=== PATIENT | female | born 1955 | race Caucasian/White ===

== ENCOUNTER 2022-11-29 10:58 | Outpatient (OUT) | payer MEDICARE, OTHER, SELFPAY ==
--- NOTE | 2022-11-29 | XR_ITS ---
The [address] [address] Patient Name: ANAND JENNINGS MRN: [id number] date: 1955 Sex: F Assigned Patient Location: [facility] Current Patient Location: Accession/Order Number: [id number] Exam Date: 11/29/2022 11:00 Report Date: 11/30/2022 06:49 At the request of: ALICE DOUGLAS Procedure: XR cervical spine 5V EXAMINATION: XR cervical spine 5V HISTORY: m54.2 COMPARISON: No relevant comparison available. FINDINGS: BONES: Loss of normal cervical lordosis. Moderate degenerative spondylosis and facet osteoarthropathy DISC SPACES: Multilevel disc space narrowing with endplate sclerosis PARASPINOUS: Negative. No paraspinous abnormality is seen. OTHER: Negative. XR/XR cervical spine 5V IMPRESSION: Moderate degenerative changes Electronically authenticated by: MINAL AGUILAR Date: 11/30/2022 06:49
== END 2022-11-29 10:59 | disposition home or self-care (01) ==
LOC: RAD 10:58
PROVIDERS: PCP Family Medicine; Visit Provider Family Medicine
DX: M54.2 Cervicalgia (principal); R53.83 Other fatigue
CPT/HCPCS: 72050

== ENCOUNTER 2022-12-01 07:18 | Outpatient (OUT) | payer MEDICARE, OTHER, SELFPAY ==
[2022-12-01 07:42] LABS: Basophils Percent Auto 0.4 % (0.2-2.0); Eosinophils Absolute Auto 0.3 10^3/uL (0.0-0.7); Eosinophils Percent Auto 4.4 % (0.9-7.0); Hematocrit 47.1 % (36.0-48.0); Hemoglobin 15.2 g/dL (12.0-16.0); Immature Granulocytes Abs Auto 0.01 10^3/uL (0.00-0.03); Immature Granulocytes Pct Auto 0.1 % (0.0-0.5); Lymphocytes Absolute Auto 2.9 10^3/uL (1.2-3.8); Lymphocytes Percent Auto 39.4 % (20.5-60.0); Mean Corpuscular HGB Conc 32.3 g/dL (29.9-35.2); Mean Corpuscular Hemoglobin 31.1 pg (26.7-34.0); Mean Corpuscular Volume 96.3 fL (81.0-99.0); Mean Platelet Volume 9.5 fL (9.5-13.5); Monocytes Absolute Auto 0.6 10^3/uL (0.3-0.8); Monocytes Percent Auto 8.3 % (1.7-12.0); Neutrophils Absolute Auto 3.5 10^3/uL (1.4-6.5); Neutrophils Percent Auto 47.4 % (43.0-75.0); Platelet Count 233 10^3/uL (150-450); Red Blood Count 4.89 10^6/uL (4.20-5.40); Red Cell Distribution Width 11.8 % (11.0-15.0); White Blood Count 7.5 10^3/uL (4.0-11.0)
[2022-12-01 08:08] LABS: Anion Gap 10.5; BUN Creatinine Ratio 25.4; Calcium 8.9 mg/dL (8.5-10.1); Carbon Dioxide 32.8 mmol/L (21.0-32.0); Chloride 100 mmol/L (98-107); Estimated GFR (African America >60 (>=60); Estimated GFR (Non-African Ame >60 (>=60); Glucose 164 mg/dL (74-106); Potassium 4.3 mmol/L (3.5-5.1); Sodium 139 mmol/L (136-145); Thyroid Stimulating Hormone 4.001 uIU/mL (0.358-3.740)
== END 2022-12-01 07:19 | disposition home or self-care (01) ==
LOC: LAB 07:20
PROVIDERS: PCP Family Medicine; Visit Provider Family Medicine
DX: R53.83 Other fatigue (principal)
CPT/HCPCS: 36415; 80048; 84443; 85025

== ENCOUNTER 2023-02-10 12:48 | Outpatient (OUT) | payer MEDICARE, OTHER, SELFPAY ==
[2023-02-10 13:57] LABS: Basophils Percent Auto 0.4 % (0.2-2.0); Eosinophils Absolute Auto 0.2 10^3/uL (0.0-0.7); Eosinophils Percent Auto 2.4 % (0.9-7.0); Hematocrit 44.2 % (36.0-48.0); Immature Granulocytes Abs Auto 0.02 10^3/uL (0.00-0.03); Immature Granulocytes Pct Auto 0.2 % (0.0-0.5); Lymphocytes Absolute Auto 2.7 10^3/uL (1.2-3.8); Lymphocytes Percent Auto 33.2 % (20.5-60.0); Mean Corpuscular HGB Conc 31.7 g/dL (29.9-35.2); Mean Corpuscular Hemoglobin 31.4 pg (26.7-34.0); Mean Corpuscular Volume 99.1 fL (81.0-99.0); Monocytes Absolute Auto 0.6 10^3/uL (0.3-0.8); Monocytes Percent Auto 6.9 % (1.7-12.0); Neutrophils Absolute Auto 4.6 10^3/uL (1.4-6.5); Neutrophils Percent Auto 56.9 % (43.0-75.0); Platelet Count 248 10^3/uL (150-450); Red Blood Count 4.46 10^6/uL (4.20-5.40); Red Cell Distribution Width 11.9 % (11.0-15.0)
[2023-02-10 14:32] LABS: Alanine Aminotransferase 29 U/L (14-59); Albumin Globulin Ratio 0.9; Albumin Level 3.6 g/dL (3.4-5.0); Alkaline Phosphatase 97 U/L (46-116); Anion Gap 11.2; Aspartate Amino Transferase 14 U/L (15-37); BUN Creatinine Ratio 15.8; Bilirubin Total 0.4 mg/dL (0.2-1.0); Calcium 9.5 mg/dL (8.5-10.1); Carbon Dioxide 32.7 mmol/L (21.0-32.0); Chloride 100 mmol/L (98-107); Estimated GFR (African America >60 (>=60); Estimated GFR (Non-African Ame >60 (>=60); Globulin 3.8 g/dL; Glucose 244 mg/dL (74-106); Potassium 3.9 mmol/L (3.5-5.1); Sodium 140 mmol/L (136-145); Total Protein 7.4 g/dL (6.4-8.2)
[2023-02-10 14:51] LABS: Free T4 1.06 ng/dL (0.76-1.46)
== END 2023-02-10 12:49 | disposition home or self-care (01) ==
LOC: LAB 12:48
PROVIDERS: PCP Family Medicine; Visit Provider Family Medicine
DX: E03.9 Hypothyroidism, unspecified (principal); R10.12 Left upper quadrant pain
CPT/HCPCS: 36415; 80053; 84439; 85025

== ENCOUNTER 2023-02-11 09:18 | Outpatient (OUT) | payer MEDICARE, OTHER, SELFPAY ==
--- NOTE | 2023-02-11 09:20 | US_ITS ---
The [address] [address] Patient Name: ANAND JENNINGS MRN: [id number] date: 1955 Sex: F Assigned Patient Location: US Current Patient Location: Accession/Order Number: [id number] Exam Date: 02/11/2023 09:21 Report Date: 02/11/2023 10:23 At the request of: ALICE DOUGLAS Procedure: US abdomen complete EXAM: US abdomen complete HISTORY: . substernal discomfort R07.2, abdominal pain R10.12 . COMPARISON: None. TECHNIQUE: Grayscale and color imaging was performed FINDINGS: The pancreas appears normal. The liver is enlarged measuring 21 cm. There is increased echogenicity of liver consistent with fatty infiltration of the liver. Color-flow is noted in the portal and hepatic veins. The abdominal aorta is unremarkable. Right kidney measures 11.7 x 4.9 x 4.7 cm and the left kidney 9.9 x 5.2 x 4.7 cm. No solid renal cortical masses or hydronephrosis is noted. The gallbladder is normal with no stones or sludge identified. Common bile duct measures 7 mm. The spleen measures 9 cm. No masses are noted. No fluid is noted within the abdomen. US/US abdomen complete IMPRESSION: 1. The liver was enlarged measuring 21 cm. There is diffuse increased echogenicity of liver consistent with fatty infiltration of liver. 2. The remainder the abdomen was unremarkable. Electronically authenticated by: MINAL GONZALEZ Date: 02/11/2023 10:23
--- OUTSIDE RECORDS SUMMARY | 2023-02-11 09:20 | XMS_ITS | CCD ---
Author Name Unknown Address [address] [place] [address] [address] [place] [id number] Organization [facility] Care Team Providers Care Entry Level Finance Name Role Phone CECILIA MARTINEZ Admitting Unavailable CECILIA MARTINEZ Attending Unavailable CECILIA MARTINEZ Primary Care Unavailable OLVIN JOSUE Consulting Unavailable CECILIA MARTINEZ Consulting Unavailable Gary Burkett Unavailable Cecilia Martinez Unavailable CECILIA MARTINEZ Referring Unavailable ANABELLE IGNACIO Attending Unavailable CECILIA MARTINEZ Referring Unavailable HUGO MEANS Attending Unavailable CECILIA MARTINEZ Referring Unavailable HUGO MEANS Attending Unavailable CECILIA MARTINEZ Referring Unavailable HUGO MEANS Attending Unavailable Geraldine Gregg Unavailable Allergies Allergy Classification Reported Allergen(s) Allergy Type Date of Onset Reaction(s) Facility (11 sources) Ibuprofen Drug Allergy Unknown [facility] Other (11 sources) Penicillin Drug Allergy Unknown [facility] Other (11 sources) Vaccine product containing Influenza virus antigen (medicinal product) Drug allergy Unknown [facility] Other Medications Current Medications Medication Drug Class(es) Dates Sig (Normalized) Sig (Original) [id number] actuat albuterol 0.09 mg/actuat metered dose inhaler (15 sources) beta2-Adrenergic Agonist take 2 puff(s) by inhalation every four hours as needed Albuterol Sulfate HFA 108 (90 Base) MCG/ACT 2 puff Inhalation every 4 hrs prn for 30 days Active take 2 puff(s) by in halation every four hours as needed Albuterol Sulfate HFA 108 (90 Base) MCG/ACT 2 puff Inhalation every 4 hrs prn for 30 days Active ProAir HFA Activ e azithromycin 250 mg oral tablet (4 sources) Macrolide Antimicrobial Start: 01-29-2023 Azithromycin 250 MG 2 tablet on the first day, then 1 tablet daily for 4 days Orally Once a day for 5 day(s) Jan, Active Start: 04-13-2022 Azithromycin 2 50 MG as directed Orally 2 tabs po today, then 1 tab daily x 4 more days for 5 Mar, Not-Taking brimonidine tartrate 2 mg/ml ophthalmic solution (4 sources) alpha-Adrenergic Agonist take 1 drop(s) into the eye(s) every eight hours Brimonidine Tartrate 0.2 % 1 drop into affected eye Ophthalmic every 8 hrs Active doxycycline hyclate 100 mg oral capsule (3 sources) Tetracycline-class Drug Start: 05-12-19 take 1 capsule by mouth twice daily Doxycycline Hyclate 100 MG 1 capsule Orally twice daily for 7 days Apr, Active fluticasone propionate 0.05 mg/actuat metered dose nasal spray (1 source) Corticosteroid Start: 01-30-20 take 1-2 spray(s) nasal route once daily Fluticasone Propionate 50 MCG/ACT 1-2 spray in each nostril Nasally Once a day for 30 days Jan, Active latanoprost 0.05 mg/ml ophthalmic solution (8 sources) Prostaglandin Analog take 1 drop(s) into the eye(s) once daily in the evening Latanoprost 0.005 % 1 drop into affected eye in the evening Ophthalmic Once a day Active take 1 drop(s) into the eye(s) once daily in the evening Latanoprost 0.005 % 1 drop into affected eye in the evening Ophthalmic Once a day Active levothyroxine sodium 0.075 mg oral tablet (2 sources) l-Thyroxine take 1 tablet by mouth once daily in the morning Levothyroxine Sodium 75 MCG 1 tablet in the morning on an empty stomach Orally Once a day for 30 days Active take 1 tablet by feliberto th once daily in the morning Levothyroxine Sodium 75 MCG 1 tablet in the morning on an empty stomach Orally Once a day for 30 days Active losartan potassium 50 mg oral tablet (2 sources) Angiotensin 2 Receptor Fermín Start: 07-17-2022 take 1 tablet by mouth every twenty-four hours Losartan Potassium 50 MG 1 tablet Orally Once a day for 30 days Jul, Active Multivitamin preparation (4 sources) Multivitamin Active sulfamethoxazole 800 mg / trimethoprim 160 mg oral tablet (2 sources) Dihydrofolate Reductase Inhibitor Antibacterial, Sulfonamide Antimicrobial Start: 08-14-2022 take 1 tablet by mouth every twelve hours Bactrim DS 800-160 MG 1 tablet Orally Twice a day for 10 day(s) Jul, Active Problems Active Problems Problem Classification Problem Date Documented Da te Episodic/Chronic Acute bronchitis (2 sources) Acute bronchitis due to other specified organisms Episodic Asthma (5 sources) Mild intermittent asthma; Translations: [Mild intermittent asthma, uncomplicated] Chronic Essential hypertension (10 sources) Essential hypertension; Translations: [Essential (primary) hypertension] Chronic Genitourinary symptoms and ill-defined conditions (1 source) Dysuria Episodic Malaise and fatigue (1 source) Other fatigue Episodic Osteoarthritis (1 source) Primary osteoarthritis, left hand; Translations: [PRIMARY OSTEOARTHRITIS LEFT HAND] Onset: 01-20-2019 Chronic Other connective tissue disease (11 sources) Pain in limb; Translations: [Pain in left finger(s)] Episodic Other gastrointestinal disorders (1 source) Other constipation Episodic Other lower respiratory disease (11 sources) Cough; Translations: [Cough] Episodic Other non-traumatic joint disorders (11 sources) Arthralgia of the lower leg; Translations: [Pain in left knee] Episodic Other skin disorders (1 source) Other infiltrative disorders of the skin and subcutaneous tissue Episodic Other upper respiratory infections (1 source) Acute recurrent maxillary sinusitis Episodic Otitis media and related conditions (1 source) Acute mastoiditis without complications, right ear Episodic Residual codes; unclassified (11 sources) Edema of left lower limb; Translations: [Localized edema] Episodic Spondylosis; intervertebral disc disorders; other back problems (1 source) Cervicalgia Episodic Past or Other Problems Problem Classification Problem Date Documented Da te Episodic/Chronic Other connective tissue disease (4 sources) Pain in left finger(s); Translations: [PAIN IN LEFT FINGERS] Onset: 01-17-2019 Episodic Other non-traumatic joint disorders (1 source) Pain in left knee; Translations: [PAIN IN LEFT KNEE] Onset: 01-20-2019 Episodic Other non-traumatic joint disorders (1 source) Effusion, left knee; Translations: [EFFUSION LEFT KNEE] Onset: 01-20-2019 Episodic Residual codes; unclassified (1 source) Localized edema; Translations: [LOCALIZED EDEMA] Onset: 01-20-2019 Episodic Unclassified (1 source) Cough R05.9 Viral infection (1 source) COVID-19 Results Test Name Value Interpretation Reference Range Facil ity US LIANNE DOP LEG LTon 01-18-20 19 US LIANNE DOP LEG LT Patient: ANAND JENNINGS Exam Date: 01/17/2019 : 1955 Gender:F Ordering : DR CECILIA MARTINEZ M.D. Admission #: [id number] Family : Order #: [id number] CLICK HERE TO VIEW EXAM RADIOLOGY REPORT PROCEDURE: ULTRASOUND VENOUS DOPPLER LEG LEFT COMPARISON: None. INDICATIONS: Acute left leg edema R60.0; acute left knee pain TECHNIQUE: Lower extremity duncan scale and Duplex Doppler evaluation of the deep venous system from the inguinal ligament through the calf veins. FINDINGS: REGION: Left lower extremity. THROMBI: None. COMPRESSIBILITY: Normal compressibility. FLOW: Normal waveform and antegrade flow between 5 and 20 cm/s. *Exam performed in accordance with [facility] practice guidelines- Peripheral venous ultrasound, May 11, 2009. CONCLUSION: 1. No deep vein thrombus within the left lower extremity. Dictated by: Olvin Josue M.D. on 01/17/2019 at 09:51 Approved by: Olvin Josue M.D. on 01/17/2019 at 09:[address] [facility] XR FINGER MIN 2 VIEWSon 12 XR FINGER MIN 2 VIEWS Patient: ANAND JENNINGS Exam Date: 01/17/2019 : 1955 Gender:F Ordering : DR CECILIA MARTINEZ M.D. Admission #: [id number] Family : Order #: [id number] CLICK HERE TO VIEW EXAM RADIOLOGY REPORT PROCEDURE: RADIOGRAPH FINGER(S) MIN 2 VIEWS COMPARISON: None. INDICATIONS: Chronic left thumb pain without injury FINDINGS: BONES: Mild narrowing of the interphalangeal joint space of the thumb and moderate size dorsal lateral degenerative periarticular r osteophyte. SOFT TISSUES: No visible soft tissue swelling or radiopaque foreign body. OTHER: Negative. CONCLUSION: 1. Mild-moderate degenerative joint disease of the left thumb. 2. No acute bone abnormality. Dictated by: Olvin Josue M.D. on 01/17/2019 at 10:24 Approved by: Olvin Josue M.D. on 01/17/2019 at 10:[address] [facility] XR KNEE LT 4V OR >on 019 XR KNEE LT 4V OR > Patient: ANAND JENNINGS Exam Date: 01/17/2019 : 1955 Gender:F Ordering : DR CECILIA MARTINEZ M.D. Admission #: [id number] Family : Order #: [id number] CLICK HERE TO VIEW EXAM RADIOLOGY REPORT PROCEDURE: RADIOGRAPH KNEE LEFT MIN 4 VIEWS COMPARISON: None. INDICATIONS: Acute left knee pain without injury FINDINGS: BONES: Slight narrowing of the medial joint space. Tiny periarticular degenerative osteophytes involving the patella. No fracture, dislocation, or bone lesion. SOFT TISSUES: No visible soft tissue swelling or radiopaque foreign body. EFFUSION: Small-moderate joint effusion. OTHER: Negative. CONCLUSION: 1. Small-moderate joint effusion and mild degenerative changes. 2. No acute bone abnormality. Dictated by: Olvin Josue M.D. on 01/17/2019 at 09:58 Approved by: Olvin Josue M.D. on 01/17/2019 at 10:[address] [facility] Vital Signs Date Time Vital Sign Value Performing Clinician Facility 11-26-2022 13:00-0400 Body height 162.56 cm Cecilia Martinez Other [facility] Other 11-26-2022 13:00-0400 Body mass index (BMI) [Ratio] 35.25 kg/m2 Cecilia Martinez Other [facility] Other 11-26-2022 13:00-0400 Body weight 93.17 kg Cecilia Martinez Other [facility] Other 11-26-2022 13:00-0400 Diastolic blood pressure 94 mm[Hg] Cecilia Martinez Other [facility] Other 11-26-2022 13:00-0400 Systolic blood pressure 167 mm[Hg] Cecilia Martinez Other [facility] Other 08-14-2022 09:45-0400 Body height 162.56 cm Cecilia Martinez Other [facility] Other 08-14-2022 09:45-0400 Body mass index (BMI) [Ratio] 35.36 kg/m2 Cecilia Martinez Other [facility] Other 08-14-2022 09:45-0400 Body weight 93.44 kg Cecilia Martinez Other [facility] Other 08-14-2022 09:45-0400 Diastolic blood pressure 80 mm[Hg] Cecilia Martinez Other [facility] Other 08-14-2022 09:45-0400 Systolic blood pressure 167 mm[Hg] Cecilia Martinez Other [facility] Other 07-17-2022 11:45-0400 Body height 162.56 cm Cecilia Martinez Other [facility] Other 07-17-2022 11:45-0400 Body mass index (BMI) [Ratio] 36.04 kg/m2 Cecilia Martinez Other [facility] Other 07-17-2022 11:45-0400 Body weight 95.26 kg Cecilia Martinez Other [facility] Other 07-17-2022 11:45-0400 Diastolic blood pressure 81 mm[Hg] Cecilia Martinez Other [facility] Other 07-17-2022 11:45-0400 Systolic blood pressure 147 mm[Hg] Cecilia Martinez Other [facility] Other 05-25-2022 15:30-0400 Body height 162.56 cm Cecilia Martinez Other [facility] Other 05-25-2022 15:30-0400 Body mass index (BMI) [Ratio] 35.01 kg/m2 Cecilia Martinez Other [facility] Other 05-25-2022 15:30-0400 Body weight 92.53 kg Cecilia Martinez Other [facility] Other 05-25-2022 15:30-0400 Diastolic blood pressure 99 mm[Hg] Cecilia Martinez Other [facility] Other 05-25-2022 15:30-0400 SaO2% (BldA) [Mass fraction] 97 % Cecilia Martinez Other [facility] Other 05-25-2022 15:30-0400 Systolic blood pressure 136 mm[Hg] Cecilia Martinez Other [facility] Other Encounters Encounter Date Encounter Type Care Provider Facility Start: 01-29-2023 End: 01-29-2023 ambulatory Geraldine Gregg Other [facility] Other Start: 01-29-2023 Office outpatient visit 15 minutes Geraldine Gregg [facility] Start: 01-14-2023 End: 01-14-2023 ambulatory CECILIA MARTINEZ Not Available Start: 01-12-2023 End: 01-13-2023 ambulatory CECILIA MARTINEZ Not Available Start: 12-31-2022 End: 12-31-2022 ambulatory CECILIA MARTINEZ Not Available Start: 12-29-2022 End: 12-29-2022 ambulatory CECILIA MARTINEZ Not Available Start: 12-07-2022 End: 12-07-2022 ambulatory Cecilia Martinez Other [facility] Other Start: 12-07-2022 Telephone encounter Cecilia Martinez [facility] Start: 11-26-2022 End: 11-26-2022 ambulatory Cecilia Martinez Other [facility] Other Start: 11-26-2022 Office outpatient visit 15 minutes Cecilia Martinez [facility] Start: 11-26-2022 Telephone encounter Cecilia Martinez [facility] Start: 08-26-2022 End: 08-26-2022 ambulatory Cecilia Martinez Other [facility] Other Start: 08-26-2022 Telephone encounter Cecilia Martinez [facility] Start: 08-14-2022 End: 08-14-2022 ambulatory Cecilia Martinez Other [facility] Other Start: 08-14-2022 Office outpatient visit 25 minutes Cecilia Martinez [facility] Start: 08-03-2022 End: 08-03-2022 ambulatory Cecilia Mratinez Other [facility] Other Start: 08-03-2022 Telephone encounter Cecilia Martinez [facility] Start: 07-17-2022 End: 07-17-2022 ambulatory Cecilia Martinez Other [facility] Other Start: 07-17-2022 Office outpatient visit 15 minutes Cecilia Martinez [facility] Start: 05-25-2022 End: 05-25-2022 ambulatory Cecilia Martinez Other [facility] Other Start: 05-25-2022 Office outpatient visit 15 minutes Cecilia Martinez [facility] Start: 05-12-2022 End: 05-12-2022 ambulatory Gary Burkett Other [facility] Other Start: 05-12-2022 Telephone encounter Gary Burkett [facility] Start: 05-11-2022 End: 05-11-2022 ambulatory Gary Burkett Other [facility] Other Start: 05-11-2022 Office outpatient visit 15 minutes [facility] Start: 01-17-2019 End: 01-18-2019 Patient encounter procedure CECILIA MARTINEZ Facility:[facility] Payers Date Payer Category Payer Unknown [id number] 2020 Medicare [id number] [id number] 1955 Unknown [id number] 1955 Unknown [id number] 1955 Unknown [id number] 1955 Unknown [id number] 1955 Unknown [id number] Unknown [id number] Social History Date Type Detail Facility Sex Assigned At [facility] Other Evaluation note 01-29-2023 Note Date & Type Note Facility 01-29-2023 Evaluation note Encounter Date Diagnosis Assessment Notes Jan, Acute recurrent maxillary sinusitis (ICD-10 - J01.01) Presentation consistent with acute sinusitis after viral illness. Educated patient on appropriateness of antibiotic at this time. Instructed to take full course of antibiotic despite feeling better after a few days. Encouraged to use saline nasal spray or nasal irrigation to help decrease viscosity and allow drainage. Encouraged humidifier or to breathe in steam from shower. Patient to continue Tylenol or Motrin as needed for discomfort. Patient to follow-up with PCP as needed if symptoms do not improve within a few days. Patient verbalizes understanding and agrees with plan of care. Jan, COVID-19 (ICD-10 - U07.1) Onset of symptoms was 10 days ago and tested positive for COVID on Wednesday. Notes that symptoms were better on Wednesday but then she notes that she had a paryt to go to so she tetsed for COVID and was positive. Discussed with pt that she it out of the window for Paxlovid as symptoms started 10 days ago. [facility] Other Evaluation note 11-26-2022 Note Date & Type Note Facility 11-26-2022 Evaluation note Encounter Date Diagnosis Assessment Notes Nov, Neck pain (ICD-10 - M54.2) Chronic problem - start w xray. Consider CT or MRI. Nov, Fatigue, unspecified type (ICD-10 - R53.83) Discussed metabolic causes of fatigue. Has not had labs in a long time. Nov, Mild intermittent asthma without complication (ICD-10 - J45.20) Pt notes flare ups recently. Requests refill on her inhaler. f. Take medication as directed and we will continue to monitor. [facility] Other Evaluation note 08-14-2022 Note Date & Type Note Facility 08-14-2022 Evaluation note Encounter Date Diagnosis Assessment Notes Jul, Acute mastoiditis of right side (ICD-10 - H70.001) Discussed probable infection due to location of tenderness and congestion. 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 Pt declines any followup, also declines mammogram and colonoscopy. Jul, Essential (primary) hypertension (ICD-10 - I10) Pt states she felt poorly on losartan. Declines further rx at this time and will monitor bp at home. [facility] Other Evaluation note 07-17-2022 Note Date & Type Note Facility 07-17-2022 Evaluation note Encounter Date Diagnosis Assessment Notes Jul, Essential (primary) hypertension (ICD-10 - I10) new problem, check bps at home. discussed stress relief. RTC in 1 month [facility] Other Evaluation note 05-25-2022 Note Date & Type Note Facility 05-25-2022 Evaluation note Encounter Date Diagnosis Assessment Notes May, Dysuria (ICD-10 - R30.0) Urine is normal no sign of infection. May, Chronic constipation (ICD-10 - K59.09) Discussed several [id number] possibilities for treatment patient understands to call back in 1 week if problem continues for further imaging and lab tests [facility] Other Evaluation note 05-12-2022 Note Date & Type Note Facility 05-12-2022 Evaluation note Encounter Date Diagnosis Assessment Notes Apr, Acute bronchitis due to other specified organisms (ICD-10 - J20.8) [facility] Other Evaluation note 05-11-2022 Note Date & Type Note Facility 05-11-2022 Evaluation note Encounter Date Diagnosis Assessment Notes Apr, Acute bronchitis due to other specified organisms (ICD-10 - J20.8) Instructed to use Robitussin or Mucinex for cough, saline or Flonase NS for congestion, Tylenol for pain and fever. Apr, Cough (ICD-10 - R05.9) Mucinex or Robitussin DM, push fluids and rest [facility] Other Evaluation note Note Date & Type Note Facility Evaluation note No Information [email or web address] Other History general Narrative - Reported Note Date & Type Note Facility History general Narrative - Reported Type Medical History Cough Medical History Thumb pain, left Medical History Edema of left lower extremity Medical History Knee pain, left Surgical History HYSTERECTOMY - UTERUS ONLY Surgical History TONSILLECTOMY Surgical History RIGHT SHOULDER AURGERY Surgical History BUNIONECTOMY Surgical History APPY Hospitalization History SEE SURGICAL HX [facility] Other History general Narrative - Reported Note Date & Type Note Facility History general Narrative - Reported Type Medical History Cough Medical History Thumb pain, left Medical History Edema of left lower extremity Medical History Knee pain, left Surgical History HYSTERECTOMY - UTERUS ONLY Surgical History TONSILLECTOMY Surgical History RIGHT SHOULDER AURGERY Surgical History BUNIONECTOMY Surgical History APPY Surgical History Left eye surgery 08/26/2022 Hospitalization History SEE SURGICAL [facility] Other Summary Purpose Family History No Family History Records FoundNo Family History Records Found Advance Directives No Advanced Directives Records FoundNo Advanced Directives Records Found Additional Source Comments INFORMATION SOURCE (unrecogn ized section and content) DATE CREATED AUTHOR 04/27/2019 [facility] DATE CREATED AUTHOR AUTHOR'S ORGANDAWIT ATION 01/17/2023 [facility] EPIC REASON FOR VISIT (unrecogniz ed section and content) Congestion, Cough [phone] [id number] InformationconstipationBP checkmessageNeckear pain / pressurerefillinfectionXR and lab resultsCOVID + ON WEDNESDAY FOR RECORDS PERTAINING TO PATIENTS WHO ARE OR HAVE BEEN ENROLLED IN A CHEMICAL DEPENDENCY/SUBSTANCEABUSE PROGRAM, SOME INFORMATION MAY BE OMITTED. This clinical summary was aggregated from multiple sources. Caution should be exercised in using it in the provision of clinical care. This summary normalizes information from multiple sources, and as a consequence, information in this document may materially change the coding, format and clinical context of patient data. In addition, data may be omitted in some cases. CLINICAL DECISIONS SHOULD BE BASED ON THE PRIMARY CLINICAL RECORDS. [facility] [employer] [facility]. provides no warranty or guarantee of the accuracy or completeness of information in this document.
== END 2023-02-11 09:19 | disposition home or self-care (01) ==
LOC: US 09:18
PROVIDERS: PCP Family Medicine; Visit Provider Family Medicine
DX: R07.2 Precordial pain (principal); R10.12 Left upper quadrant pain; R16.0 Hepatomegaly, not elsewhere classified
CPT/HCPCS: 76700

== ENCOUNTER 2023-03-02 11:17 | Outpatient (OUT) | payer MEDICARE, OTHER, SELFPAY ==
--- OUTSIDE RECORDS SUMMARY | 2023-03-02 11:21 | XMS_ITS | CCD ---
Author Name Unknown Address [address] [place] [address] [place] [id number] Organization [facility] Care Team Providers Care Coding Educator Name Role Phone CECILIA MARTINEZ Admitting Unavailable [...] HUGO MEANS Attending Unavailable Geraldine Gregg Unavailable [phone] Allergies Allergy Classification Reported Allergen(s) Allergy Type Date of Onset Reaction(s) Facility (13 sources) Ibuprofen Drug Allergy Unknown [facility] Other (13 sources) Penicillin Drug Allergy Unknown [facility] Other (13 sources) Vaccine product containing Influenza virus antigen (medicinal product) Drug allergy Unknown [facility] Other Medications Current Medications Medication Drug Class(es) Dates Sig (Normalized) Sig (Original) [id number] actuat albuterol 0.09 mg/actuat metered dose inhaler (19 sources) beta2-Adrenergic Agonist take 2 puff(s) by [...] propionate 0.05 mg/actuat metered dose nasal spray (3 sources) Corticosteroid Start: 01-30-20 take 1-2 spray(s) nasal route once daily Fluticasone Propionate 50 MCG/ACT 1-2 spray in each nostril Nasally Once a day for 30 days Jan, Active latanoprost 0.05 mg/ml ophthalmic solution (10 sources) Prostaglandin Analog take 1 drop(s) into the eye(s) once daily in the evening Latanoprost 0.005 % 1 drop into affected eye in the evening Ophthalmic Once a day Active take 1 drop(s) into the eye(s) once daily in the evening Latanoprost 0.005 % 1 drop into affected eye in the evening Ophthalmic Once a day Active levothyroxine sodium 0.075 mg oral tablet (4 sources) l-Thyroxine take 1 tablet by mouth once daily in the morning Levothyroxine Sodium 75 MCG TAKE ONE TABLET BY MOUTH EVERY MORNING ON AN EMPTY STOMACH for 30 Active take 1 tablet by feliberto th [...] a day for 30 days Jul, Active metFORMIN hydrochloride 500 mg oral tablet (2 sources) Biguanide Start: 02-11-2023 take 1 tablet by mouth every twenty-four hours metFORMIN HCl 500 MG 1 tablet with a meal Orally Once a day for 30 day(s) Jan, Active Multivitamin preparation (6 sources) Multivitamin Active sulfamethoxazole 800 mg / [...] due to other specified organisms Episodic Asthma (7 sources) Mild intermittent asthma; Translations: [Mild intermittent asthma, uncomplicated] Chronic Essential hypertension (12 sources) Essential hypertension; Translations: [Essential (primary) hypertension] Chronic Genitourinary symptoms and ill-defined conditions (1 source) Dysuria Episodic Malaise and fatigue (1 source) Other fatigue Episodic Osteoarthritis (1 source) Primary osteoarthritis, left hand; Translations: [PRIMARY OSTEOARTHRITIS LEFT HAND] Onset: 01-20-2019 Chronic Other connective tissue disease (13 sources) Pain in limb; Translations: [Pain in left finger(s)] Episodic Other gastrointestinal disorders (1 source) Other constipation Episodic Other lower respiratory disease (13 sources) Cough; Translations: [Cough] Episodic Other non-traumatic joint disorders (13 sources) Arthralgia of the lower leg; Translations: [Pain in left knee] Episodic Other skin disorders (1 source) Other infiltrative disorders of the skin and subcutaneous tissue Episodic Other upper respiratory infections (1 source) Acute recurrent maxillary sinusitis Episodic Otitis media and related conditions (1 source) Acute mastoiditis without complications, right ear Episodic Residual codes; unclassified (13 sources) Edema of left lower limb; Translations: [Localized edema] Episodic Spondylosis; intervertebral disc disorders; other back problems (1 source) Cervicalgia Episodic Thyroid disorders (2 sources) Acquired hypothyroidism; Translations: [Hypothyroidism, unspecified] Chronic Past or Other Problems Problem Classification Problem [...] : DR CECILIA MARTINEZ M.D. Admission #: [id number] Family : Order #: [id number] CLICK HERE TO VIEW EXAM RADIOLOGY REPORT [...] on 01/17/2019 at 09:52 Normal [facility] XR FINGER MIN 2 VIEWSon XR FINGER MIN 2 VIEWS Patient: ANAND JENNINGS Exam Date: 01/17/2019 : 1955 Gender:F Ordering : DR CECILIA MARTINEZ M.D. Admission #: [id number] Family : Order #: [id number] CLICK HERE TO VIEW EXAM RADIOLOGY REPORT [...] on 01/17/2019 at 10:49 Normal [facility] XR KNEE LT 4V OR >on 019 XR KNEE LT 4V OR > Patient: ANAND JENNINGS Exam Date: 01/17/2019 : 1955 Gender:F Ordering : DR CECILIA MARTINEZ M.D. Admission #: [id number] Family : Order #: [id number] CLICK HERE TO VIEW EXAM RADIOLOGY REPORT [...] 2. No acute bone abnormality. Dictated by: lOvin Josue M.D. on 01/17/2019 at 09:58 Approved by: Olvin Josue M.D. on 01/17/2019 at 10:24 Normal [facility] Vital Signs Date Time Vital Sign Value Performing Clinician Facility 11-26-2022 13:00-0400 Body height 162.56 cm Cecilia Martinez Other [facility] Other 11-26-2022 13:00-0400 Body mass index (BMI) [Ratio] 35.25 kg/m2 Cecilia Martinez Other [facility] Other 11-26-2022 13:00-0400 Body weight 93.17 kg Cecilia Martinez Other [facility] Other 11-26-2022 13:00-0400 Diastolic blood pressure 94 mm[Hg] Cecilia Martinez Other [facility] Other 11-26-2022 13:00-0400 Systolic blood pressure 167 mm[Hg] Cecilia Martinez Other [facility] Other 08-14-2022 09:45-0400 Body height 162.56 cm Cecilia Martinez Other [facility] Other 08-14-2022 09:45-0400 Body mass index (BMI) [Ratio] 35.36 kg/m2 Cecilia Martinez Other [facility] Other 08-14-2022 09:45-0400 Body weight 93.44 kg Cecilia Martinez Other [facility] Other 08-14-2022 09:45-0400 Diastolic blood pressure 80 mm[Hg] Cecilia Martinez Other [facility] Other 08-14-2022 09:45-0400 Systolic blood pressure 167 mm[Hg] Cecilia Martinez Other [facility] Other 07-17-2022 11:45-0400 Body height 162.56 cm Cecilia Martinez Other [facility] Other 07-17-2022 11:45-0400 Body mass index (BMI) [Ratio] 36.04 kg/m2 Cecilia Martinez Other [facility] Other 07-17-2022 11:45-0400 Body weight 95.26 kg Cecilia Martinez Other [facility] Other 07-17-2022 11:45-0400 Diastolic blood pressure 81 mm[Hg] Cecilia Martinez Other [facility] Other 07-17-2022 11:45-0400 Systolic blood pressure 147 mm[Hg] Cecilia Martinez Other [facility] Other 05-25-2022 15:30-0400 Body height 162.56 cm Cecilia Martinez Other [facility] Other 05-25-2022 15:30-0400 Body mass index (BMI) [Ratio] 35.01 kg/m2 Cecilia Martinez Other [facility] Other 05-25-2022 15:30-0400 Body weight 92.53 kg Cecilia Martinez Other [facility] Other 05-25-2022 15:30-0400 Diastolic blood pressure 99 mm[Hg] Cecilia Martinez Other [facility] Other 05-25-2022 15:30-0400 SaO2% (BldA) [Mass fraction] 97 % Cecilia Martinez Other [facility] Other 05-25-2022 15:30-0400 Systolic blood pressure 136 mm[Hg] Cecilia Martinez Other [facility] Other Encounters Encounter Date Encounter Type Care Provider Facility Start: 02-12-2023 End: 02-12-2023 ambulatory Cecilia Martinez Other [facility] Other Start: 02-12-2023 Telephone encounter Cecilia Martinez [facility] Start: 02-11-2023 End: 02-11-2023 ambulatory Cecilia Martinez Other [facility] Other Start: 02-11-2023 Telephone encounter Cecilia Martinez [facility] Start: 01-29-2023 End: 01-29-2023 ambulatory Geraldine Cristino Other [facility] Other Start: 01-29-2023 Office outpatient visit 15 minutes Geraldine Cristino [facility] Start: 01-14-2023 End: 01-14-2023 ambulatory CECILIA MARTINEZ Not Available Start: 01-12-2023 End: 01-13-2023 ambulatory CECILIA MARTINEZ Not Available Start: 12-31-2022 End: 12-31-2022 ambulatory CECILIA MARTINEZ Not Available Start: 12-29-2022 End: 12-29-2022 ambulatory CECILIA MARTINEZ Not Available Start: 12-07-2022 End: 12-07-2022 ambulatory Cecilia Juan Other [facility] Other Start: 12-07-2022 Telephone encounter Cecilia Martinez [facility] Start: 11-26-2022 End: 11-26-2022 ambulatory Cecilia Juan Other [facility] Other Start: 11-26-2022 Office outpatient visit 15 minutes Cecilia Martinez [facility] Start: 11-26-2022 Telephone encounter Cecilia Juan [facility] Start: 08-26-2022 End: 08-26-2022 ambulatory Cecilia Juan Other [facility] Other Start: 08-26-2022 Telephone encounter Cecilia uJan [facility] Start: 08-14-2022 End: 08-14-2022 ambulatory Cecilia Juan Other [facility] Other Start: 08-14-2022 Office outpatient visit 25 minutes Cecilia Juan [facility] Start: 08-03-2022 End: 08-03-2022 ambulatory Cecilia Martinez Other [facility] Other Start: 08-03-2022 Telephone encounter Cecilia Martinez [facility] Start: 07-17-2022 End: 07-17-2022 ambulatory Cecilia Martinez Other [facility] Other Start: 07-17-2022 Office outpatient visit 15 minutes Cecilia Martinez [facility] Start: 05-25-2022 End: 05-25-2022 ambulatory Cecilia Martinez Other [facility] Other Start: 05-25-2022 Office outpatient visit 15 minutes Cecilia Martinez [facility] Start: 05-12-2022 End: 05-12-2022 ambulatory Gary Burkett Other [facility] Other Start: 05-12-2022 Telephone encounter Gary Burkett [facility] Start: 05-11-2022 End: 05-11-2022 ambulatory Gary Burkett Other [facility] Other Start: 05-11-2022 Office outpatient visit 15 minutes Gary Burkett [facility] Start: 01-17-2019 End: 01-18-2019 Patient encounter procedure CECILIA MARTINEZ Facility:[facility] Payers Date Payer Category Payer Unknown [id number] 2020 Medicare [id number] 2.1 [id number] 1955 Unknown [id number] [id number] 1955 Unknown [id number] 1955 Unknown [id number] 1955 Unknown [id number] 1955 Unknown [id number] Unknown [id number] Social History Date Type Detail Facility Sex Assigned At [facility] Other Clinical Notes 05-11-2022 to 01-29-2023 Note Date & Type Note Facility [...] Paxlovid as symptoms started 10 days ago. [facility] Other 10-12-2023 Evaluation note* Encounter Date Diagnosis Assessment Notes Treatment Notes Treatment Clinical Notes Nov, Neck pain (ICD-10 - M54.2) [...] directed and we will continue to monitor. [facility] Other 06-30-2023 Evaluation note* Encounter Date Diagnosis Assessment Notes Treatment Notes Treatment Clinical Notes Jul, Acute mastoiditis of right side (ICD-10 - H70.001) Discussed probable infection due to location of tenderness and congestion. 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 Pt declines any followup, also declines mammogram and colonoscopy. Jul, Essential (primary) hypertension (ICD-10 - I10) Pt states she felt poorly on losartan. Declines further rx at this time and will monitor bp at home. [facility] Other 06-02-2023 Evaluation note* Encounter Date Diagnosis Assessment Notes Treatment Notes Treatment Clinical Notes Jul, Essential (primary) hypertension (ICD-10 - I10) new problem, check bps at home. discussed stress relief. RTC in 1 month [facility] Other 04-10-2023 Evaluation note* Encounter Date Diagnosis Assessment Notes Treatment Notes Treatment Clinical Notes May, Dysuria (ICD-10 - R30.0) Urine is normal no sign of infection. May, Chronic constipation (ICD-10 - K59.09) Discussed several [id number] possibilities for treatment patient understands to call back in 1 week if problem continues for further imaging and lab tests [facility] Other 03-28-2023 Evaluation note* Encounter Date Diagnosis Assessment Notes Treatment Notes Treatment Clinical Notes Apr, Acute bronchitis due to other specified organisms (ICD-10 - J20.8) [facility] Other 03-27-2023 Evaluation note* Encounter Date Diagnosis Assessment Notes Treatment Notes Treatment Clinical Notes Apr, Acute bronchitis due to other specified organisms (ICD-10 - J20.8) Instructed to use Robitussin or Mucinex for cough, saline or Flonase NS for congestion, Tylenol for pain and fever. Apr, Cough (ICD-10 - R05.9) Mucinex or Robitussin DM, push fluids and rest [facility] Other Evaluation noteNo InformationNort [facility] Other History general Narrative - Reported* Type Description Date Medical History Cough Medical History Thumb pain, left Medical History Edema of left lower extremity Medical History Knee pain, left Surgical History HYSTERECTOMY - UTERUS ONLY Surgical History TONSILLECTOMY Surgical History RIGHT SHOULDER AURGERY Surgical History BUNIONECTOMY Surgical History APPY Hospitalization History SEE SURGICAL HX [facility] Other History general Narrative - Reported* Type Description Date Medical History Cough Medical History Thumb pain, left Medical History Edema of left lower extremity Medical History Knee pain, left Surgical History HYSTERECTOMY - UTERUS ONLY Surgical History TONSILLECTOMY Surgical History RIGHT SHOULDER AURGERY Surgical History BUNIONECTOMY Surgical History APPY Surgical History Left eye surgery 08/26/2022 Hospitalization History SEE SURGICAL HX [facility] Other [facility] general Narrative - Reported* Type Description Date Medical History Cough Medical History Thumb pain, left Medical History Edema of left lower extremity Medical History Knee pain, left Surgical History HYSTERECTOMY - UTERUS ONLY Surgical History TONSILLECTOMY Surgical History RIGHT SHOULDER AURGERY Surgical History BUNIONECTOMY Surgical History APPY Surgical History Left eye surgery 08/26/2022 Surgical History Right eye surgery 01/19/23 Hospitalization History SEE SURGICAL HX [facility] Other Summary Purpose Family History No Family History Records FoundNo Family History Records Found Advance Directives No Advanced Directives Records FoundNo Advanced Directives Records Found Additional Source Comments INFORMATION SOURCE (unrecogn ized section and content) DATE CREATED AUTHOR 04/27/2019 [facility] DATE CREATED AUTHOR AUTHOR'S ORGANIZ ATION 01/17/2023 [facility] EPIC REASON FOR VISIT (unrecogniz ed section and content) Congestion, Cough [phone] InformationconstipationBP checkmessageNeckear pain / pressurerefillinfectionXR and lab resultsCOVID + ON WEDNESDAYlabsUS and labs FOR RECORDS PERTAINING TO PATIENTS WHO ARE [...] BE BASED ON THE PRIMARY CLINICAL RECORDS. [employer] [facility]. provides no warranty or guarantee of the accuracy or completeness of information in this document.
== END 2023-03-02 11:18 | disposition home or self-care (01) ==
LOC: MN 11:17
PROVIDERS: PCP Family Medicine
DX: E11.9 Type 2 diabetes mellitus without complications (principal)
CPT/HCPCS: G0108

== ENCOUNTER 2023-03-24 09:49 | Outpatient (OUT) | payer MEDICARE, OTHER, SELFPAY ==
--- NOTE | 2023-03-24 09:53 | XR_ITS ---
The [address] [address] Patient Name: ANAND JENNINGS MRN: [id number] date: 1955 Sex: F Assigned Patient Location: [facility] Current Patient Location: [facility] Accession/Order Number: [id number] Exam Date: 03/24/2023 10:10 Report Date: 03/24/2023 10:55 At the request of: ALICE DOUGLAS Procedure: XR DEXA axial skeleton EXAMINATION: XR DEXA axial skeleton, 03/24/2023 10:10 AM EST HISTORY: menopause Z78.0 COMPARISON: None. TECHNIQUE: Dual-energy X-ray absorptiometry (DEXA) bone density study performed for the axial skeleton. HISTORY: menopause Z78.0 FINDINGS: Bone mineral density AP spine L1-L4 measures 1.073 g/sq cm. T score -0.9. WHO classification: Normal. Lowest bone mineral densities the right femoral 0.711 g/sq cm. T score -1.2. WHO classification: Osteopenia XR/XR DEXA axial skeleton IMPRESSION: Osteopenia. Moderate fracture risk Electronically authenticated by: MINAL AGUILAR Date: 03/24/2023 10:55
--- OUTSIDE RECORDS SUMMARY | 2023-03-24 10:06 | XMS_ITS | CCD ---
Author Name Unknown Address [address] [place] [address] [place] [id number] Organization [facility] Care Team Providers Care New Car Sales Manager Name Role Phone CECILIA MARTINEZ Admitting Unavailable [...] Allergy Type Date of Onset Reaction(s) Facility (15 sources) Ibuprofen Drug Allergy Unknown [facility] Other (15 sources) Penicillin Drug Allergy Unknown [facility] Other (15 sources) Vaccine product containing Influenza virus antigen (medicinal product) Drug allergy Unknown [facility] Other Medications Current Medications Medication Drug Class(es) Dates Sig (Normalized) Sig (Original) [id number] actuat albuterol 0.09 mg/actuat metered dose inhaler (20 sources) beta2-Adrenergic Agonist take 2 puff(s) by [...] propionate 0.05 mg/actuat metered dose nasal spray (5 sources) Corticosteroid Start: 01-30-20 take 1-2 spray(s) nasal route once daily Fluticasone Propionate 50 MCG/ACT 1-2 spray in each nostril Nasally Once a day for 30 days Jan, Active latanoprost 0.05 mg/ml ophthalmic solution (12 sources) Prostaglandin Analog take 1 drop(s) into the eye(s) once daily in the evening Latanoprost 0.005 % 1 drop into affected eye in the evening Ophthalmic Once a day Active take 1 drop(s) into the eye(s) once daily in the evening Latanoprost 0.005 % 1 drop into affected eye in the evening Ophthalmic Once a day Active levothyroxine sodium 0.075 mg oral tablet (6 sources) l-Thyroxine take 1 tablet by mouth once daily in the morning Levothyroxine Sodium 75 MCG TAKE ONE TABLET BY MOUTH EVERY MORNING ON AN EMPTY STOMACH for 30 days Active take 1 tablet [...] Active metFORMIN hydrochloride 500 mg oral tablet (4 sources) Biguanide Start: 02-11-2023 take 1 tablet by mouth every twenty-four hours metFORMIN HCl 500 MG 1 tablet with a meal Orally Once a day for 30 day(s) Jan, Active Multivitamin preparation (8 sources) Multivitamin Active sulfamethoxazole 800 mg / [...] due to other specified organisms Episodic Asthma (9 sources) Mild intermittent asthma; Translations: [Mild intermittent asthma, uncomplicated] Chronic Diabetes mellitus with complications (1 source) Type II diabetes mellitus uncontrolled; Translations: [Type 2 diabetes mellitus with hyperglycemia] Chronic Essential hypertension (14 sources) Essential hypertension; Translations: [Essential (primary) hypertension] Chronic Genitourinary symptoms and ill-defined conditions (1 source) Dysuria Episodic Malaise and fatigue (1 source) Other fatigue Episodic Osteoarthritis (1 source) Primary osteoarthritis, left hand; Translations: [PRIMARY OSTEOARTHRITIS LEFT HAND] Onset: 01-20-2019 Chronic Other connective tissue disease (15 sources) Pain in limb; Translations: [Pain in left finger(s)] Episodic Other gastrointestinal disorders (1 source) Other constipation Episodic Other lower respiratory disease (15 sources) Cough; Translations: [Cough] Episodic Other non-traumatic joint disorders (15 sources) Arthralgia of the lower leg; Translations: [Pain in left knee] Episodic Other skin disorders (1 source) Other infiltrative disorders of the skin and subcutaneous tissue Episodic Other upper respiratory infections (1 source) Acute recurrent maxillary sinusitis Episodic Otitis media and related conditions (1 source) Acute mastoiditis without complications, right ear Episodic Residual codes; unclassified (15 sources) Edema of left lower limb; Translations: [Localized edema] Episodic Spondylosis; intervertebral disc disorders; other back problems (1 source) Cervicalgia Episodic Thyroid disorders (4 sources) Acquired hypothyroidism; Translations: [Hypothyroidism, unspecified] Chronic [...] : DR CECILIA MARTINEZ M.D. Admission #: [id number] Family : Order #: [id number] CLICK HERE TO VIEW EXAM RADIOLOGY REPORT [...] Josue M.D. on 01/17/2019 at 09:52 Normal [facility] XR FINGER MIN 2 VIEWSon XR FINGER MIN 2 VIEWS Patient: ANAND JENNINGS Exam Date: 01/17/2019 : 1955 Gender:F Ordering : DR CECILIA MARTINEZ M.D. Admission #: [id number] Family : Order #: [id number] CLICK HERE TO VIEW EXAM RADIOLOGY REPORT [...] Josue M.D. on 01/17/2019 at 10:49 Normal [facility] XR KNEE LT 4V OR >on 019 XR KNEE LT 4V OR > Patient: ANAND JENNINGS Exam Date: 01/17/2019 : 1955 Gender:F Ordering : DR CECILIA MARTINEZ M.D. Admission #: [id number] Family : Order #: [id number] CLICK HERE TO VIEW EXAM RADIOLOGY REPORT [...] Josue M.D. on 01/17/2019 at 10:24 Normal [facility] Vital Signs Date Time Vital Sign Value Performing Clinician Facility 11-26-2022 13:00-0400 Body height 162.56 cm Cecilia Martinez Other [facility] Other 11-26-2022 13:00-0400 Body mass index (BMI) [Ratio] 35.25 kg/m2 Cecilia Martinez Other [facility] Other 11-26-2022 13:00-0400 Body weight 93.17 kg Cecilia Martinez Other [facility] Other 11-26-2022 13:00-0400 Diastolic blood pressure 94 mm[Hg] Cecilia Martinez Other [facility] Other 11-26-2022 13:00-0400 Systolic blood pressure 167 mm[Hg] Cecilia Martinez Other [facility] Other 08-14-2022 09:45-0400 Body height 162.56 cm Cecilia Martinez Other [facility] Other 08-14-2022 09:45-0400 Body mass index (BMI) [Ratio] 35.36 kg/m2 Cecilia Martinez Other [facility] Other 08-14-2022 09:45-0400 Body weight 93.44 kg Cecilia Martinez Other [facility] Other 08-14-2022 09:45-0400 Diastolic blood pressure 80 mm[Hg] Cecilia Martinez Other [facility] Other 08-14-2022 09:45-0400 Systolic blood pressure 167 mm[Hg] Cecilia Martinez Other [facility] Other 07-17-2022 11:45-0400 Body height 162.56 cm Cecilia Martinez Other [facility] Other 07-17-2022 11:45-0400 Body mass index (BMI) [Ratio] 36.04 kg/m2 Cecilia Martinez Other [facility] Other 07-17-2022 11:45-0400 Body weight 95.26 kg Cecilia Martinez Other [facility] Other 07-17-2022 11:45-0400 Diastolic blood pressure 81 mm[Hg] Cecilia Martinez Other [facility] Other 07-17-2022 11:45-0400 Systolic blood pressure 147 mm[Hg] Cecilia Martinez Other [facility] Other 05-25-2022 15:30-0400 Body height 162.56 cm Cecilia Martinez Other [facility] Other 05-25-2022 15:30-0400 Body mass index (BMI) [Ratio] 35.01 kg/m2 Cecilia Martinez Other [facility] Other 05-25-2022 15:30-0400 Body weight 92.53 kg Cecilia Martinez Other [facility] Other 05-25-2022 15:30-0400 Diastolic blood pressure 99 mm[Hg] Cecilia Martinez Other [facility] Other 05-25-2022 15:30-0400 SaO2% (BldA) [Mass fraction] 97 % Cecilia Martinez Other [facility] Other 05-25-2022 15:30-0400 Systolic blood pressure 136 mm[Hg] Cecilia Martinez Other [facility] Other Encounters Encounter Date Encounter Type Care Provider Facility Start: 03-16-2023 End: 03-16-2023 ambulatory Cecilia Martinez Other [facility] Other Start: 03-16-2023 Telephone encounter Cecilia Martinez [facility] Start: 03-10-2023 End: 03-10-2023 ambulatory Cecilia Martinez Other [facility] Other Start: 03-10-2023 Telephone encounter Cecilia Martinez [facility] Start: 02-12-2023 End: 02-12-2023 ambulatory Cecilia Juan Other [facility] Other Start: 02-12-2023 Telephone encounter Cecilia Martinez [facility] Start: 02-11-2023 End: 02-11-2023 ambulatory Cecilia Juan Other [facility] Other Start: 02-11-2023 Telephone encounter Cecilia Martinez [facility] Start: 01-29-2023 End: 01-29-2023 ambulatory Geraldine Gregg Other [facility] Other Start: 01-29-2023 Office outpatient visit 15 minutes Geraldine Gregg [facility] Start: 01-14-2023 End: 01-14-2023 ambulatory CECILIA MARTINEZ Not Available Start: 01-12-2023 End: 01-13-2023 ambulatory CECILIA MARTINEZ Not Available Start: 12-31-2022 End: 12-31-2022 ambulatory CECILIA MARTINEZ Not Available Start: 12-29-2022 End: 12-29-2022 ambulatory CECILIA MARTINEZ Not Available Start: 12-07-2022 End: 12-07-2022 ambulatory Cecilia Martinez Other [facility] Other Start: 12-07-2022 Telephone encounter Cecilia Martinez [facility] Start: 11-26-2022 End: 11-26-2022 ambulatory Cecilia Martinez Other [facility] Other Start: 11-26-2022 Office outpatient visit 15 minutes Cecilia Martinez [facility] Start: 11-26-2022 Telephone encounter Cecilia Martinez [facility] Start: 08-26-2022 End: 08-26-2022 ambulatory Cecilia Martinez Other [facility] Other Start: 08-26-2022 Telephone encounter Cecilia Martinez [facility] Start: 08-14-2022 End: 08-14-2022 ambulatory Cecilia Martinez Other [facility] Other Start: 08-14-2022 Office outpatient visit 25 minutes Cecilia Martinez [facility] Start: 08-03-2022 End: 08-03-2022 ambulatory Cecilia Martinez Other [facility] Other Start: 08-03-2022 Telephone encounter Cecilia Martinez [facility] Start: 07-17-2022 End: 07-17-2022 ambulatory Cecilia Martinez Other [facility] Other Start: 07-17-2022 Office outpatient visit 15 minutes Cecilia Martinez [facility] Start: 05-25-2022 End: 05-25-2022 ambulatory Cecilia Martinez Other [facility] Other Start: 05-25-2022 Office outpatient visit 15 minutes Cecilia Martinez [facility] Start: 05-12-2022 End: 05-12-2022 ambulatory Gary Burkett Other [facility] Other Start: 05-12-2022 Telephone encounter Gary Burkett [facility] Start: 05-11-2022 End: 05-11-2022 ambulatory Gary Burkett Other [facility] Other Start: 05-11-2022 Office outpatient visit 15 minutes Gary Burkett [facility] Start: 01-17-2019 End: 01-18-2019 Patient encounter procedure CECILIA MARTINEZ Facility:[facility] Payers Date Payer Category Payer Unknown [id number] 2020 Medicare [id number] 2.1 [id number] 1955 Unknown [id number] [id number] 1955 Unknown [id number] 1955 Unknown [id number] 1955 Unknown [id number] 1955 Unknown [id number] Unknown [id number] Social History Date Type Detail Facility Sex Assigned At [facility] Other Clinical Notes 05-11-2022 to 01-29-2023 Note [...] Paxlovid as symptoms started 10 days ago. [facility] Other 10-12-2023 Evaluation note* Encounter Date Diagnosis [...] directed and we will continue to monitor. [facility] Other 06-30-2023 Evaluation note* Encounter Date Diagnosis [...] printed lab and scanned into chart from [employer] EMR. Pt declines any followup, also declines mammogram and colonoscopy. Jul, Essential (primary) hypertension (ICD-10 - I10) Pt states she felt poorly on losartan. Declines further rx at this time and will monitor bp at home. [facility] Other 06-02-2023 Evaluation note* Encounter Date Diagnosis Assessment Notes Treatment Notes Treatment Clinical Notes Jul, Essential (primary) hypertension (ICD-10 - I10) new problem, check bps at home. discussed stress relief. RTC in 1 month [facility] Other 04-10-2023 Evaluation note* Encounter Date Diagnosis Assessment Notes Treatment Notes Treatment Clinical Notes May, Dysuria (ICD-10 - R30.0) Urine is normal no sign of infection. May, Chronic constipation (ICD-10 - K59.09) Discussed several [id number] possibilities for treatment patient understands to call back in 1 week if problem continues for further imaging and lab tests [facility] Other 03-28-2023 Evaluation note* Encounter Date Diagnosis Assessment Notes Treatment Notes Treatment Clinical Notes Apr, Acute bronchitis due to other specified organisms (ICD-10 - J20.8) [facility] Other 03-27-2023 Evaluation note* Encounter Date Diagnosis Assessment Notes Treatment Notes Treatment Clinical Notes Apr, Acute bronchitis due to other specified organisms (ICD-10 - J20.8) Instructed to use Robitussin or Mucinex for cough, saline or Flonase NS for congestion, Tylenol for pain and fever. Apr, Cough (ICD-10 - R05.9) Mucinex or Robitussin DM, push fluids and rest [facility] Other Evaluation [facility]No [facility] Other History general Narrative - Reported* Type Description Date Medical History Cough Medical History Thumb pain, left Medical History Edema of left lower extremity Medical History Knee pain, left Surgical History HYSTERECTOMY - UTERUS ONLY Surgical History TONSILLECTOMY Surgical History RIGHT SHOULDER AURGERY Surgical History BUNIONECTOMY Surgical History APPY Hospitalization History SEE SURGICAL [facility] Other History general Narrative - Reported* Type Description Date Medical History Cough Medical History Thumb pain, left Medical History Edema of left lower extremity Medical History Knee pain, left Surgical History HYSTERECTOMY - UTERUS ONLY Surgical History TONSILLECTOMY Surgical History RIGHT SHOULDER AURGERY Surgical History BUNIONECTOMY Surgical History APPY Surgical History Left eye surgery 08/26/2022 Hospitalization History SEE SURGICAL [facility] Other Hisursj general Narrative - Reported* Type Description Date Medical History Cough Medical History Thumb pain, left Medical History Edema of left lower extremity Medical History Knee pain, left Surgical History HYSTERECTOMY - UTERUS ONLY Surgical History TONSILLECTOMY Surgical History RIGHT SHOULDER AURGERY Surgical History BUNIONECTOMY Surgical History APPY Surgical History Left eye surgery 08/26/2022 Surgical History Right eye surgery 01/19/23 Hospitalization History SEE SURGICAL [facility] Other Summary Purpose Family History No Family History Records FoundNo Family History Records Found Advance Directives No Advanced Directives Records FoundNo Advanced Directives Records Found Additional Source Comments INFORMATION SOURCE (unrecogn ized section and content) DATE CREATED AUTHOR 04/27/2019 [facility] DATE CREATED AUTHOR AUTHOR'S ORGANIZ ATION 01/17/2023 [facility] EPIC REASON FOR VISIT (unrecogniz ed section and content) Congestion, Cough [id number] InformationconstipationBP checkmessageNeckear pain / pressurerefillinfectionXR and lab resultsCOVID + ON WEDNESDAYlabsUS and labsrefillappt FOR RECORDS PERTAINING TO PATIENTS WHO ARE [...] BE BASED ON THE PRIMARY CLINICAL RECORDS. [facility] [facility]. provides no warranty or guarantee of the accuracy or completeness of information in this document.
== END 2023-03-24 09:50 | disposition home or self-care (01) ==
LOC: RAD 09:49
PROVIDERS: PCP Family Medicine; Visit Provider Family Medicine
DX: M85.80 Other specified disorders of bone density and structure, unspecified site (principal); Z78.0 Asymptomatic menopausal state
CPT/HCPCS: 77080

== ENCOUNTER 2023-08-30 11:08 | Outpatient (OUT) | payer MEDICARE, OTHER, SELFPAY ==
[2023-08-30 12:17] LABS: TSH W/ REFLEX FT4 1.254 uIU/mL (0.358-3.740)
== END 2023-08-30 11:09 | disposition home or self-care (01) ==
LOC: LAB 11:08
PROVIDERS: PCP Family Medicine; Visit Provider Family Medicine
DX: E03.9 Hypothyroidism, unspecified (principal)
CPT/HCPCS: 36415; 84443

== ENCOUNTER 2024-02-19 08:19 | Outpatient (OUT) | payer MEDICARE, OTHER, SELFPAY ==
--- NOTE | 2024-02-19 | XR_ITS ---
The [address] [address] Patient Name: ANAND JENNINGS MRN: [id number] date: 1955 Sex: F Assigned Patient Location: LAB Current Patient Location: Accession/Order Number: [id number] Exam Date: 02/19/2024 08:23 Report Date: 02/21/2024 06:52 At the request of: ALICE DOUGLAS Procedure: XR chest 2V EXAM: XR chest 2V CLINICAL INDICATION: E03.9 I10 Acquired hypothyroidism, primary hypertension COMPARISON: None TECHNIQUE: 2 views of chest performed. FINDINGS: Lungs: No convincing focal infiltrates. No pleural effusion or pneumothorax. Heart: Cardiac and mediastinal contours are unremarkable. No overt pulmonary vascular congestion. Osseous structures: No acute abnormalities. XR/XR chest 2V IMPRESSION: No acute cardiopulmonary process. Electronically authenticated by: SEE GIBBONS Date: 02/21/2024 06:52
[2024-02-19 08:47] LABS: Basophils Percent Auto 0.5 % (0.2-2.0); Eosinophils Absolute Auto 0.4 10^3/uL (0.0-0.7); Eosinophils Percent Auto 4.2 % (0.9-7.0); Hemoglobin 14.4 g/dL (12.0-16.0); Immature Granulocytes Abs Auto 0.09 10^3/uL (0.00-0.03); Immature Granulocytes Pct Auto 1.1 % (0.0-0.5); Lymphocytes Absolute Auto 2.5 10^3/uL (1.2-3.8); Lymphocytes Percent Auto 29.2 % (20.5-60.0); Mean Corpuscular HGB Conc 32.7 g/dL (29.9-35.2); Mean Corpuscular Hemoglobin 31.2 pg (26.7-34.0); Mean Corpuscular Volume 95.4 fL (81.0-99.0); Mean Platelet Volume 8.4 fL (9.5-13.5); Monocytes Absolute Auto 0.9 10^3/uL (0.3-0.8); Monocytes Percent Auto 10.4 % (1.7-12.0); Neutrophils Absolute Auto 4.6 10^3/uL (1.4-6.5); Neutrophils Percent Auto 54.6 % (43.0-75.0); Platelet Count 321 10^3/uL (150-450); Red Blood Count 4.61 10^6/uL (4.20-5.40); Red Cell Distribution Width 11.9 % (11.0-15.0); White Blood Count 8.4 10^3/uL (4.0-11.0)
[2024-02-19 09:21] LABS: Estimated Average Glucose 128 mg/dL; Glycohemoglobin A1C 6.1 % (4.5-6.2)
[2024-02-19 09:24] LABS: Alanine Aminotransferase 24 U/L (14-59); Albumin Globulin Ratio 1.1; Albumin Level 3.8 g/dL (3.4-5.0); Alkaline Phosphatase 79 U/L (46-116); Aspartate Amino Transferase 15 U/L (15-37); BUN Creatinine Ratio 12.7; Bilirubin Total 0.4 mg/dL (0.2-1.0); Calcium 9.6 mg/dL (8.5-10.1); Carbon Dioxide 35.1 mmol/L (21.0-32.0); Chloride 101 mmol/L (98-107); Estimated GFR (African America >60 (>=60 mL/min/1.73m^2); Estimated GFR (Non-African Ame >60 (>=60 mL/min/1.73m^2); Globulin 3.6 g/dL; Glucose 91 mg/dL (74-106); Potassium 4.1 mmol/L (3.5-5.1); Sodium 141 mmol/L (136-145); Thyroid Stimulating Hormone 1.263 uIU/mL (0.358-3.740); Total Protein 7.4 g/dL (6.4-8.2)
[2024-02-19 09:44] LABS: Free T4 1.31 ng/dL (0.76-1.46)
== END 2024-02-19 08:20 | disposition home or self-care (01) ==
LOC: LAB 08:19
PROVIDERS: PCP Family Medicine; Visit Provider Family Medicine
DX: E03.9 Hypothyroidism, unspecified (principal); I10 Essential (primary) hypertension; E11.65 Type 2 diabetes mellitus with hyperglycemia
CPT/HCPCS: 36415; 71046; 80053; 83036; 84439; 84443; 85025

== ENCOUNTER 2025-01-23 14:50 | Outpatient (RCR) | payer MEDICARE, OTHER, SELFPAY ==
[2025-01-23 16:27] LABS: Hematocrit 45.5 % (36.0-48.0); Hemoglobin 15.2 g/dL (12.0-16.0); Immature Granulocytes Abs Auto 0.02 10^3/uL (0.00-0.03); Immature Granulocytes Pct Auto 0.2 % (0.0-0.5); Lymphocytes Absolute Auto 3.1 10^3/uL (1.2-3.8); Mean Corpuscular HGB Conc 33.4 g/dL (29.9-35.2); Mean Corpuscular Hemoglobin 32.1 pg (26.7-34.0); Mean Corpuscular Volume 96.0 fL (81.0-99.0); Platelet Count 224 10^3/uL (150-450); Red Blood Count 4.74 10^6/uL (4.20-5.40); White Blood Count 8.9 10^3/uL (4.0-11.0)
[2025-01-23 16:41] LABS: Alanine Aminotransferase 25 U/L (14-59); Albumin Globulin Ratio 1.2; Albumin Level 4.1 g/dL (3.4-5.0); Alkaline Phosphatase 107 U/L (46-116); Anion Gap 13.3; Aspartate Amino Transferase 14 U/L (15-37); Blood Urea Nitrogen 16.0 mg/dL (7.0-18.0); Calcium 9.1 mg/dL (8.5-10.1); Carbon Dioxide 30.7 mmol/L (21.0-32.0); Chloride 102 mmol/L (98-107); Estimated GFR (African America >60 (>=60 mL/min/1.73m^2); Estimated GFR (Non-African Ame >60 (>=60 mL/min/1.73m^2); Globulin 3.4 g/dL; Glucose 135 mg/dL (74-106); Potassium 4.0 mmol/L (3.5-5.1); Sodium 142 mmol/L (136-145); Total Protein 7.5 g/dL (6.4-8.2)
== END 2025-02-14 23:59 | disposition home or self-care (01) ==
LOC: HEMC 14:50
PROVIDERS: PCP Family Medicine; Visit Provider Internal Medicine Hematology & Oncology
DX: C85.90 Non-Hodgkin lymphoma, unspecified, unspecified site (principal); C82.61 Cutaneous follicle center lymphoma, lymph nodes of head, face, and neck
CPT/HCPCS: 36415; 80053; 83615; 85025; G0463